=== PATIENT | female | born 1945 | race Caucasian/White ===

== ENCOUNTER 2017-10-10 14:38 | Inpatient (IN) | payer MEDICARE, OTHER ==
[2017-10-10] MEDS: SOD CHLORIDE 0.9% 1,000 ML IV ×2 (15:08→17:06)
[2017-10-10 15:16] LABS: ADD MAN DIFF? NO
[2017-10-10 15:18] LABS: BASOPHILS % 0.1 % (0.0-2.0); HEMATOCRIT 29.9 % (37.0-47.0); HEMOGLOBIN 9.4 g/dl (12.0-16.0); LYMPHOCYTES # 1.3 10^3/ul (0.8-2.9); LYMPHOCYTES % 9.2 % (15.0-51.0); MEAN CORPUSCULAR HGB CONC 31.4 g/dl (32.0-37.0); MEAN PLATELET VOLUME 10.1 fl (7.4-10.4); MONOCYTE # 0.3 10^3/ul (0.3-0.9); MONOCYTES % 1.8 % (0.0-11.0); NEUTROPHIL # 12.2 10^3/ul (1.6-7.5); NEUTROPHILS % 88.2 % (39.0-77.0); PLATELET COUNT 380 10^3/UL (140-415); RED BLOOD COUNT 3.36 10^6/ul (4.20-5.40); RED CELL DISTRIBUTION WIDTH 14.5 % (11.5-14.5)
[2017-10-10 15:18] LABS: WHITE BLOOD COUNT 13.8 10^3/ul (4.8-10.8)
[2017-10-10 15:39] LABS: INR 0.93; PROTIME 12.5 Sec (11.9-14.9)
[2017-10-10 15:40] LABS: PARTIAL THROMBOPLASTIN TIME 23.1 Sec (25.0-35.0)
[2017-10-10 15:51] LABS: ALANINE AMINOTRANSFERASE 14 IU/L (13-69); ALBUMIN 4.2 g/dl (3.3-4.9); ALKALINE PHOSPHATASE 97 IU/L (42-121); ANION GAP 20 (8-16); ASPARTATE AMINO TRANSFERASE 22 IU/L (15-46); BILIRUBIN,INDIRECT 0.2 mg/dl (0-1.1); BILIRUBIN,TOTAL 0.2 mg/dl (0.2-1.3); BLOOD UREA NITROGEN 18 mg/dl (7-20); CALCIUM 8.9 mg/dl (8.4-10.2); CARBON DIOXIDE 21 mmol/L (21-31); CHLORIDE 101 mmol/L (97-110); CREATININE 0.95 mg/dl (0.44-1.00); LIPASE 265 U/L (23-300); POTASSIUM 4.8 mmol/L (3.5-5.1); SODIUM 137 mmol/L (135-144)
[2017-10-10 16:12] LABS: TROPONIN-I < 0.010 ng/ml (0.000-0.120)
[2017-10-10 16:13] LABS: GLUCOSE 408 mg/dl (70-220)
[2017-10-10] MEDS ORDERED: MAGNESIUM SULFATE 1 GM/D5W 100 ML IVPB (16:30)
[2017-10-10] MEDS ORDERED: POTASSIUM CHLORIDE 100 ML IVPB (16:30)
[2017-10-10] MEDS: metroNIDAZOLE 500 MG/NS (PMX) 100 ML IVPB (16:57)
[2017-10-10] MEDS ORDERED: GLUCAGON 1 MG INJ IM (17:00)
[2017-10-10] MEDS ORDERED: GLUCOSE GEL 15 GRAM TUBE PO ×2 (17:00)
[2017-10-10] MEDS ORDERED: DEXTROSE 50% 50 ML SYRINGE IV ×2 (17:00)
[2017-10-10] MEDS ORDERED: GLUCOSE GEL 15 GRAM TUBE BUCCAL (17:00)
[2017-10-10] MEDS: INSULIN LISPRO 100 UNIT/ML VIAL SC (17:02)
[2017-10-10] MEDS: LEVOFLOXACIN 500MG/D5W (PMX) 100 ML IVPB (17:23)
[2017-10-10] MEDS: LORAZEPAM 2 MG INJ IV (17:23)
[2017-10-10 18:44] LABS: OCCULT BLOOD STOOL POSITIVE (NEGATIVE)
[2017-10-10] MEDS ORDERED: NACL 0.9% 3 ML SYG IV (19:30)
[2017-10-10] MEDS ORDERED: HYDROCODONE/APAP (5/325) TAB PO (19:30)
[2017-10-10] MEDS: METOPROLOL 25 MG TAB PO (22:35)
[2017-10-11] MEDS: hydrALAzine 20 MG INJ IV (04:52)
[2017-10-11 06:06] LABS: ADD MAN DIFF? NO
[2017-10-11 06:10] LABS: WHITE BLOOD COUNT 10.8 10^3/ul (4.8-10.8)
[2017-10-11 06:10] LABS: BASOPHILS % 0.4 % (0.0-2.0); EOSINOPHILS % 0.2 % (0.0-7.0); HEMATOCRIT 23.1 % (37.0-47.0); HEMOGLOBIN 7.5 g/dl (12.0-16.0); LYMPHOCYTES # 2.4 10^3/ul (0.8-2.9); LYMPHOCYTES % 21.7 % (15.0-51.0); MEAN CORPUSCULAR HEMOGLOBIN 28.5 pg (29.0-33.0); MEAN CORPUSCULAR HGB CONC 32.5 g/dl (32.0-37.0); MEAN CORPUSCULAR VOLUME 87.8 fl (82.0-101.0); MEAN PLATELET VOLUME 9.8 fl (7.4-10.4); MONOCYTE # 0.9 10^3/ul (0.3-0.9); MONOCYTES % 8.1 % (0.0-11.0); NEUTROPHIL # 7.5 10^3/ul (1.6-7.5); NEUTROPHILS % 68.9 % (39.0-77.0); PLATELET COUNT 287 10^3/UL (140-415); RED BLOOD COUNT 2.63 10^6/ul (4.20-5.40); RED CELL DISTRIBUTION WIDTH 14.7 % (11.5-14.5)
[2017-10-11 06:31] LABS: ALANINE AMINOTRANSFERASE 16 IU/L (13-69); ALBUMIN 3.1 g/dl (3.3-4.9); ALBUMIN/GLOBULIN RATIO 1.19; ALKALINE PHOSPHATASE 58 IU/L (42-121); ANION GAP 8 (8-16); ASPARTATE AMINO TRANSFERASE 17 IU/L (15-46); BILIRUBIN,INDIRECT 0.2 mg/dl (0-1.1); BILIRUBIN,TOTAL 0.2 mg/dl (0.2-1.3); BLOOD UREA NITROGEN 13 mg/dl (7-20); CALCIUM 8.1 mg/dl (8.4-10.2); CARBON DIOXIDE 27 mmol/L (21-31); CHLORIDE 110 mmol/L (97-110); CREATININE 0.79 mg/dl (0.44-1.00); GLUCOSE 107 mg/dl (70-220); POTASSIUM 3.4 mmol/L (3.5-5.1); SODIUM 142 mmol/L (135-144); TOTAL PROTEIN 5.7 g/dl (6.1-8.1)
[2017-10-11] MEDS: NIFEdipine (XL) 60 MG TAB PO (08:05)
[2017-10-11] MEDS: metFORMIN 500 MG TAB PO ×3 (08:05→17:02)
[2017-10-11] MEDS: METOPROLOL 25 MG TAB PO ×2 (08:05→21:11)
[2017-10-11] MEDS: predniSONE 5 MG TAB PO (08:06)
[2017-10-11 17:41] LABS: HEMATOCRIT 23.6 % (37.0-47.0); HEMOGLOBIN 7.5 g/dl (12.0-16.0)
[2017-10-11] MEDS: traMADol 50 MG TAB PO (21:10)
[2017-10-11] MEDS: HYDROCORTISONE 25 MG SUPP PR (21:12)
[2017-10-12] MEDS: HYDROCORTISONE 25 MG SUPP PR ×2 (09:02→20:25)
[2017-10-12] MEDS: predniSONE 5 MG TAB PO (09:02)
[2017-10-12] MEDS: metFORMIN 500 MG TAB PO ×3 (09:03→18:30)
[2017-10-12] MEDS: METOPROLOL 25 MG TAB PO ×2 (09:07→20:26)
[2017-10-12] MEDS: NIFEdipine (XL) 60 MG TAB PO (09:08)
[2017-10-12] MEDS: ACETAMINOPHEN 325 MG TAB PO ×2 (12:32→20:25)
[2017-10-12] MEDS: INSULIN ASPART [NOVOLOG] 3 ML PEN SC ×5 (12:37→20:24)
[2017-10-12] MEDS ORDERED: ONDANSETRON 4 MG INJ IV (17:03)
[2017-10-12] MEDS: INSULIN GLARGINE [LANtus] 3 ML PEN SC (23:04)
[2017-10-13] MEDS: ACCU-CHEK XX (02:00)
[2017-10-13] MEDS: ACETAMINOPHEN 325 MG TAB PO (04:23)
[2017-10-13 06:45] LABS: ADD MAN DIFF? NO
[2017-10-13 06:48] LABS: WHITE BLOOD COUNT 11.4 10^3/ul (4.8-10.8)
[2017-10-13 06:48] LABS: BASOPHILS % 0.3 % (0.0-2.0); EOSINOPHILS # 0.1 10^3/ul (0.0-0.5); EOSINOPHILS % 0.8 % (0.0-7.0); HEMATOCRIT 22.8 % (37.0-47.0); HEMOGLOBIN 7.1 g/dl (12.0-16.0); LYMPHOCYTES # 1.6 10^3/ul (0.8-2.9); LYMPHOCYTES % 14.2 % (15.0-51.0); MEAN CORPUSCULAR HEMOGLOBIN 27.5 pg (29.0-33.0); MEAN CORPUSCULAR HGB CONC 31.1 g/dl (32.0-37.0); MEAN CORPUSCULAR VOLUME 88.4 fl (82.0-101.0); MONOCYTE # 0.9 10^3/ul (0.3-0.9); MONOCYTES % 7.5 % (0.0-11.0); NEUTROPHIL # 8.7 10^3/ul (1.6-7.5); NEUTROPHILS % 76.4 % (39.0-77.0); PLATELET COUNT 319 10^3/UL (140-415); RED BLOOD COUNT 2.58 10^6/ul (4.20-5.40); RED CELL DISTRIBUTION WIDTH 14.5 % (11.5-14.5)
[2017-10-13 07:18] LABS: ANION GAP 13 (8-16); BLOOD UREA NITROGEN 17 mg/dl (7-20); CALCIUM 8.3 mg/dl (8.4-10.2); CARBON DIOXIDE 24 mmol/L (21-31); CHLORIDE 104 mmol/L (97-110); CREATININE 0.87 mg/dl (0.44-1.00); GLUCOSE 106 mg/dl (70-220); POTASSIUM 3.1 mmol/L (3.5-5.1); SODIUM 138 mmol/L (135-144)
[2017-10-13] MEDS: INSULIN ASPART [NOVOLOG] 3 ML PEN SC ×7 (07:55→21:11)
[2017-10-13] MEDS: BISACODYL (EC) 5 MG TAB PO ×2 (09:13→17:40)
[2017-10-13] MEDS: predniSONE 5 MG TAB PO (09:13)
[2017-10-13] MEDS: metFORMIN 500 MG TAB PO ×3 (09:13→17:40)
[2017-10-13] MEDS: HYDROCORTISONE 25 MG SUPP PR ×2 (09:14→20:53)
[2017-10-13] MEDS: POLYETHYLENE GLYCOL 3350 119 GM POWDER PO ×2 (09:14→17:40)
[2017-10-13] MEDS: NIFEdipine (XL) 60 MG TAB PO (09:15)
[2017-10-13] MEDS: METOPROLOL 25 MG TAB PO ×2 (09:15→20:53)
[2017-10-13] MEDS: traMADol 50 MG TAB PO ×2 (11:54→17:40)
[2017-10-13] MEDS: MAGNESIUM CITRATE 300 ML BTL PO (14:23)
[2017-10-13] MEDS: POTASSIUM CHLORIDE (SR) 20 MEQ TAB PO (15:12)
[2017-10-13] MEDS: INSULIN GLARGINE [LANtus] 3 ML PEN SC (21:10)
[2017-10-14 00:14] LABS: IMMEDIATE SPIN CROSSMATCH 1 2
[2017-10-14] MEDS: ACCU-CHEK XX (02:04)
[2017-10-14] MEDS: traMADol 50 MG TAB PO (04:07)
[2017-10-14 07:20] LABS: ADD MAN DIFF? NO
[2017-10-14 07:25] LABS: BASOPHILS % 0.3 % (0.0-2.0); EOSINOPHILS # 0.1 10^3/ul (0.0-0.5); EOSINOPHILS % 0.5 % (0.0-7.0); HEMATOCRIT 33.4 % (37.0-47.0); LYMPHOCYTES # 1.5 10^3/ul (0.8-2.9); LYMPHOCYTES % 11.5 % (15.0-51.0); MEAN CORPUSCULAR HEMOGLOBIN 28.3 pg (29.0-33.0); MEAN CORPUSCULAR HGB CONC 32.9 g/dl (32.0-37.0); MEAN CORPUSCULAR VOLUME 85.9 fl (82.0-101.0); MEAN PLATELET VOLUME 9.9 fl (7.4-10.4); MONOCYTE # 0.8 10^3/ul (0.3-0.9); MONOCYTES % 6.1 % (0.0-11.0); NEUTROPHIL # 10.7 10^3/ul (1.6-7.5); NEUTROPHILS % 80.9 % (39.0-77.0); PLATELET COUNT 299 10^3/UL (140-415); RED BLOOD COUNT 3.89 10^6/ul (4.20-5.40); RED CELL DISTRIBUTION WIDTH 14.6 % (11.5-14.5)
[2017-10-14 07:25] LABS: WHITE BLOOD COUNT 13.2 10^3/ul (4.8-10.8)
[2017-10-14] MEDS: INSULIN ASPART [NOVOLOG] 3 ML PEN SC ×7 (07:51→20:37)
[2017-10-14 07:54] LABS: ALANINE AMINOTRANSFERASE 13 IU/L (13-69); ALBUMIN 3.4 g/dl (3.3-4.9); ALBUMIN/GLOBULIN RATIO 1.17; ALKALINE PHOSPHATASE 71 IU/L (42-121); ANION GAP 11 (8-16); ASPARTATE AMINO TRANSFERASE 14 IU/L (15-46); BILIRUBIN,INDIRECT 0.5 mg/dl (0-1.1); BILIRUBIN,TOTAL 0.5 mg/dl (0.2-1.3); BLOOD UREA NITROGEN 17 mg/dl (7-20); CALCIUM 8.4 mg/dl (8.4-10.2); CARBON DIOXIDE 25 mmol/L (21-31); CHLORIDE 105 mmol/L (97-110); CREATININE 0.88 mg/dl (0.44-1.00); GLUCOSE 82 mg/dl (70-220); POTASSIUM 3.3 mmol/L (3.5-5.1); SODIUM 138 mmol/L (135-144); TOTAL PROTEIN 6.3 g/dl (6.1-8.1)
[2017-10-14] MEDS: predniSONE 5 MG TAB PO (08:21)
[2017-10-14] MEDS: HYDROCORTISONE 25 MG SUPP PR ×2 (08:21→20:30)
[2017-10-14] MEDS: NIFEdipine (XL) 60 MG TAB PO (08:22)
[2017-10-14] MEDS: METOPROLOL 25 MG TAB PO ×2 (08:22→20:30)
[2017-10-14] MEDS: metFORMIN 500 MG TAB PO ×3 (08:22→17:26)
[2017-10-14] MEDS: ACETAMINOPHEN 325 MG TAB PO ×2 (08:38→21:05)
[2017-10-14] MEDS: POTASSIUM CHLORIDE 100 ML IVPB ×2 (11:15→13:45)
[2017-10-14] MEDS: NS + KCL 20 MEQ 1,000 ML IV (11:15)
[2017-10-14] MEDS ORDERED: PROPOFOL 20 ML (15:03)
[2017-10-14] MEDS ORDERED: FENTAnyl 50 MCG/ML VIAL (15:03)
[2017-10-14] MEDS ORDERED: MIDAZOLAM 1 MG/ML 2 ML INJ (15:03)
[2017-10-14] MEDS: INSULIN GLARGINE [LANtus] 3 ML PEN SC (20:37)
[2017-10-15] MEDS: ACCU-CHEK XX (02:00)
[2017-10-15 06:30] LABS: ADD MAN DIFF? NO
[2017-10-15 06:37] LABS: WHITE BLOOD COUNT 12.1 10^3/ul (4.8-10.8)
[2017-10-15 06:37] LABS: BASOPHILS % 0.2 % (0.0-2.0); EOSINOPHILS # 0.1 10^3/ul (0.0-0.5); EOSINOPHILS % 0.9 % (0.0-7.0); HEMATOCRIT 28.5 % (37.0-47.0); HEMOGLOBIN 9.4 g/dl (12.0-16.0); LYMPHOCYTES % 7.9 % (15.0-51.0); MEAN CORPUSCULAR HEMOGLOBIN 28.3 pg (29.0-33.0); MEAN CORPUSCULAR VOLUME 85.8 fl (82.0-101.0); MEAN PLATELET VOLUME 9.8 fl (7.4-10.4); MONOCYTE # 0.7 10^3/ul (0.3-0.9); MONOCYTES % 5.7 % (0.0-11.0); NEUTROPHIL # 10.3 10^3/ul (1.6-7.5); NEUTROPHILS % 84.8 % (39.0-77.0); PLATELET COUNT 300 10^3/UL (140-415); RED BLOOD COUNT 3.32 10^6/ul (4.20-5.40); RED CELL DISTRIBUTION WIDTH 15.2 % (11.5-14.5)
[2017-10-15 06:54] LABS: ANION GAP 8 (8-16); BLOOD UREA NITROGEN 16 mg/dl (7-20); CALCIUM 8.4 mg/dl (8.4-10.2); CARBON DIOXIDE 25 mmol/L (21-31); CHLORIDE 107 mmol/L (97-110); CREATININE 0.81 mg/dl (0.44-1.00); GLUCOSE 113 mg/dl (70-220); PHOSPHORUS 3.9 mg/dl (2.5-4.9); POTASSIUM 4.3 mmol/L (3.5-5.1); SODIUM 136 mmol/L (135-144)
[2017-10-15] MEDS: INSULIN ASPART [NOVOLOG] 3 ML PEN SC ×4 (07:55→12:50)
[2017-10-15] MEDS: metFORMIN 500 MG TAB PO ×2 (08:38→12:56)
[2017-10-15] MEDS: METOPROLOL 25 MG TAB PO (08:39)
[2017-10-15] MEDS: predniSONE 5 MG TAB PO (08:40)
[2017-10-15] MEDS: NIFEdipine (XL) 60 MG TAB PO (08:40)
[2017-10-15] MEDS: HYDROCORTISONE 25 MG SUPP PR (08:45)
== END 2017-10-15 15:04 | disposition home or self-care (01) | DRG 393 ==
LOC: E/R 14:38 → TEL 16:37
PROC: 0DJD8ZZ Inspection of Lower Intestinal Tract, Via Natural or Artificial Opening Endoscopic (ICD-10-PCS; principal; 2017-10-14 14:30)
DX: K64.8 Other hemorrhoids (principal); K57.31 Diverticulosis of large intestine without perforation or abscess with bleeding; D62 Acute posthemorrhagic anemia; K92.1 Melena; M06.9 Rheumatoid arthritis, unspecified; Z79.52 Long term (current) use of systemic steroids; I10 Essential (primary) hypertension; E11.65 Type 2 diabetes mellitus with hyperglycemia; E78.5 Hyperlipidemia, unspecified; R19.7 Diarrhea, unspecified
CPT/HCPCS: 36415; 36430; 74176; 80048; 80053; 82270; 82962; 83036; 83690; 83735; 84100; 84484; 85014; 85018; 85025; 85610; 85730; 86850; 86900; 86901; 86920; 87075; 93005; 96372; 96374; 96375; 97116; 97161; 97530; 99285-25

== ENCOUNTER 2018-02-20 05:54 | Day surgery (SDC) | payer MEDICARE, OTHER ==
[2018-02-20] MEDS ORDERED: CEFAZOLIN 2 GM/50 ML (PMX) 50 ML IVPB (06:00)
[2018-02-20] MEDS ORDERED: SOD CHLORIDE 0.9% 1,000 ML IV (06:00)
[2018-02-20] MEDS ORDERED: SUCCINYLCHOLINE CHLORIDE 100 MG/5 ML SYG IV (07:00)
[2018-02-20] MEDS ORDERED: OXYCODONE/ACETAMINOPHEN (5/325) TAB PO ×2 (07:30)
[2018-02-20] MEDS ORDERED: MEPERIDINE 25 MG INJ IV (07:30)
[2018-02-20] MEDS ORDERED: LABETALOL HCL 20MG INJ IV (07:30)
[2018-02-20] MEDS ORDERED: TRIMETHOBENZAMIDE 100 MG/ML VIAL IM (07:30)
[2018-02-20] MEDS ORDERED: MIDAZOLAM 1 MG/ML 2 ML INJ IV (07:30)
[2018-02-20] MEDS ORDERED: ONDANSETRON 4 MG INJ IV (07:30)
[2018-02-20] MEDS ORDERED: HYDROmorphONE 1 MG/5 ML IV SYRINGE IV ×3 (07:30)
[2018-02-20] MEDS ORDERED: FENTAnyl 50 MCG/ML VIAL IV ×2 (07:30)
[2018-02-20] MEDS ORDERED: EPHEDrine SULFATE 50 MG/5 ML SYG IV (07:30)
[2018-02-20] MEDS ORDERED: DIPHENHYDRAMINE 50 MG INJ IV (07:30)
[2018-02-20] MEDS ORDERED: PROPOFOL 20 ML (07:42)
[2018-02-20] MEDS ORDERED: MIDAZOLAM 1 MG/ML 2 ML INJ (07:42)
[2018-02-20] MEDS ORDERED: NEOSTIGMINE 3 MG/3 ML SYRINGE (07:42)
[2018-02-20] MEDS ORDERED: CEFAZOLIN 1 GM INJ (07:42)
[2018-02-20] MEDS ORDERED: GLYCOPYRROLATE 0.4 MG INJ (07:42)
[2018-02-20] MEDS ORDERED: ROCURONIUM 50 MG INJ (07:42)
[2018-02-20] MEDS ORDERED: DEXAMETHASONE 4 MG/ML 1 ML INJ (07:43)
[2018-02-20] MEDS ORDERED: FENTAnyl 50 MCG/ML VIAL (07:43)
[2018-02-20] MEDS ORDERED: ONDANSETRON 4 MG INJ (07:43)
[2018-02-20] MEDS: BUPIVACAINE 0.25% (MPF) 30 ML INJ (08:09)
[2018-02-20] MEDS ORDERED: HYDROCODONE/APAP (5/325) TAB PO (08:30)
[2018-02-20] MEDS: ALBUTEROL 0.083% (NEB) 2.5 MG/3 ML AMP HHN (08:38)
[2018-02-20] MEDS: IPRATROPIUM (NEB) 0.5 MG/2.5 ML AMP HHN (08:40)
[2018-02-20] MEDS: FENTAnyl 50 MCG/ML VIAL IV (09:06)
[2018-02-20] MEDS: hydrALAzine 20 MG INJ IV (09:06)
== END 2018-02-20 10:00 | disposition home or self-care (01) ==
LOC: SDS 05:54
DX: D17.1 Benign lipomatous neoplasm of skin and subcutaneous tissue of trunk (principal); M06.9 Rheumatoid arthritis, unspecified; I10 Essential (primary) hypertension; E11.9 Type 2 diabetes mellitus without complications; E78.5 Hyperlipidemia, unspecified
CPT/HCPCS: 14001; 82962; 88307